=== PATIENT | female | born 1980 | race Hispanic/Latino ===

== ENCOUNTER 2017-12-10 01:39 | Inpatient (IN) | payer MEDICAID, SELFPAY ==
[2017-12-10] MEDS ORDERED: Ketorolac Tromethamine 30 MG/ML VIAL ONE ×2 (02:05→16:03)
[2017-12-10] MEDS ORDERED: Morphine 4 MG/ML VIAL ONE (02:05)
[2017-12-10] MEDS ORDERED: Ondansetron HCl/PF 4 MG/2 ML Vial ONE ×2 (02:05→16:03)
[2017-12-10 02:46] LABS: #Eosinphils 0.1 thou/uL (0.0-0.7); #Lymphocytes 3.4 thou/uL (1.20-3.40); #Monocytes 0.6 thou/uL (0.11-0.59); #Neutrophils 4.7 thou/uL (1.40-6.50); %Basophils 0.4 % (0.0-1.0); %Eosinophils 0.8 % (0.0-10.0); %Lymphocytes 38.4 % (21.0-51.0); %Neutrophils 53.5 % (42.0-75.0); Hemoglobin 12.5 g/dL (12.0-16.0); Mean Corpuscular Hemoglobin 30.3 pg (27.0-31.0); Mean Platelet Volume 7.9 fL (7.4-10.4); Platelet Count 263 thou/uL (130-400); RBC Distribution Width 11.8 % (11.5-14.5); Red Blood Cell (RBC) Count 4.13 mill/uL (4.20-5.40); White Blood Cell (WBC) Count 8.9 thou/uL (4.8-10.8)
[2017-12-10 03:06] LABS: ALT (SGPT) 10 U/L (8-55); AST (SGOT) 16 U/L (5-34); Albumin 4.3 g/dL (3.5-5.0); Alkaline Phosphatase 64 U/L (40-150); Anion Gap 15 mmol/L (10-20); BUN (Urea Nitrogen) 16 mg/dL (7.0-18.7); Bilirubin, Total 0.3 mg/dL (0.2-1.2); Calc. Creatinine Clearance 0 mL/min (70-130); Calcium 9.3 mg/dL (7.8-10.44); Carbon Dioxide 17 mmol/L (22-29); Chloride 107 mmol/L (98-107); Estimated GFR-MDRD 84; Globulin 3.6 g/dL (2.4-3.5); Glucose 113 mg/dL (70-105); Potassium 3.5 mmol/L (3.5-5.1); Protein, Total 7.9 g/dL (6.0-8.3); Sodium 135 mmol/L (136-145)
[2017-12-10 03:14] LABS: Bilirubin Negative (Negative); Blood, Urine Negative (Negative); Clarity CLEAR (Clear); Glucose, Urine (Dipstick) Negative (Negative); Leukocyte Negative (Negative); Nitrite Negative (Negative); Protein, Urine (Dipstick) Negative (Neg-Trace); Urobilinogen 0.2 mg/dL (0.2-1.0); pH, Urine 5.5 (5.0-9.0)
[2017-12-10 03:15] LABS: Pregnancy Test - Urine (BHCG) Negative (Negative); Pregu Control Background? CLEAR/WHITE (CLR/WHITE); Pregu Control Bar Appear? YES (CONTROL BAR)
[2017-12-10 03:17] LABS: Acetaminophen Less than 6.0 mcg/mL (10.0-30.0); Alcohol 135 mg/dL (Less than 10); Salicylate Less than 8.0 mg/dL (15.0-30.0)
[2017-12-10] MEDS ORDERED: Ondansetron HCl/PF 4 MG/2 ML Vial IVP PRN ×2 (03:28→17:46)
[2017-12-10] MEDS ORDERED: Dextrose 50% Abboject 50 ML SYRINGE SLOW IVP PRN (03:28)
[2017-12-10] MEDS ORDERED: Ondansetron ODT 4 MG TAB PO PRN (03:28)
[2017-12-10] MEDS ORDERED: traMADol HCl 50 MG TAB PO PRN (03:28)
[2017-12-10] MEDS ORDERED: Dextrose 5% in Water 1,000 ML IV PRN (03:28)
--- NOTE | 2017-12-10 04:09 | HP ---
DATE OF ADMISSION: 12/10/2017 ATTENDING PHYSICIAN: Dr. Hernandez. TRAUMA ACTIVATION: Not applicable. HISTORY OF PRESENT ILLNESS: This is a 37-year-old female with no past medical history who presented to [facility] status post a fall while dancing at a club. Per patient, she was devendra ferrara, somebody stepped on her foot while she was turning causing her to fall down onto her left side. S he had immediate onset of left lower extremity pain with inability to mobilize. She denies head trau ma or loss of consciousness. She was evaluated in the emergency room and found to have a proximal fe mur fracture. Orthopedic Surgery was notified and Trauma Services was asked to admit. Upon my evalu ation, the patient has a chief complaint of 10/10 left lower extremity pain. The pain is worse with palpation or movement and relieved with rest and pain medication. PAST MEDICAL HISTORY: None. ALLERGIES: None. HOME MEDICATIONS: None. CHRONIC MEDICAL ILLNESSES: The patient denies. PAST SURGICAL HISTORY: The patient denies. SOCIAL HISTORY: Patient is a cook. Endorses occasional/social alcohol use. Denies tobacco or illic it drug use. FAMILY HISTORY: Significant for father with CAD. REVIEW OF SYSTEMS: A 10-point review of systems was performed and was performed and essentially nega tive except as indicated in the HPI. PHYSICAL EXAMINATION: VITAL SIGNS: Temperature 97.9, pulse 85, respirations 18, O2 saturation 98% on room air, blood press ure 135/77. GENERAL: Well-developed female in no acute distress, resting in bed. HEAD: Normocephalic, atraumatic. EYES: Pupils are PERRL. Extraocular movements are intact. NECK: Supple. Trachea is midline. There is no midline tenderness to palpation. CHEST: Atraumatic, nontender to palpation. Normal work of breathing. Symmetric rise. CARDIOVASCULAR: Regular rate and rhythm, no obvious murmurs, rubs or gallops. GASTROINTESTINAL: Abdomen is soft, nontender, nondistended. BACK: Reported as being within normal limits. EXTREMITIES: Bilateral upper extremities within normal limits. Right lower extremity within normal limits. Left lower extremity with tenderness to palpation of the left hip and thigh. Range of motio n is limited secondary to pain. She is neurovascularly intact distal to the side of her injury. NEUROLOGIC: GCS is 15. No focal deficit is noted. LABORATORY DATA: WBC 8.9, hemoglobin 12.5, hematocrit 38.0 and platelet count 263. Sodium 135, pota ssium 3.5, chloride 107, carbon dioxide 17, BUN 16, creatinine 0.77, glucose 113. AST and ALT within normal limits. Urine test was negative. Urinalysis is unremarkable. Blood alcohol was 1 35. EKG with normal sinus rhythm and QT prolongation at 470 milliseconds, QTC prolongation at 470 mi lliseconds. RADIOLOGIC FINDINGS: Chest x-ray was within normal limits. Official read is pending. X-ray of the femur showed a comminuted and displaced proximal femur fracture. Official read is pending. ASSESSMENT: 1. Status post mechanical fall. 2. Left femur fracture. 3. Acute traumatic pain. 4. Prolonged QTC. PLAN: 1. Admit to Trauma Services. 2. Orthopedic Surgery has been notified and plans for operative intervention later today. Periopera tive pain management with p.o. and IV analgesics. The patient should be n.p.o., IV fluid hydration, postoperative PT and OT. DVT and gastritis prophylaxis when appropriate. Plans for admission were d iscussed with the patient and family at bedside. All questions were answered at the time of this dic tation. Trauma attending has been notified of admission.
[2017-12-10] MEDS: Lactated Ringer's 1,000 ML IV SCH ×3 (05:24→21:36)
[2017-12-10] MEDS: Ketorolac Tromethamine 30 MG/ML VIAL IVP SCH ×3 (05:25→18:37)
[2017-12-10] MEDS: Acetaminophen 500 MG TAB PO SCH ×3 (05:25→18:35)
[2017-12-10] MEDS: traMADol HCl 50 MG TAB PO SCH ×3 (05:26→18:35)
[2017-12-10] MEDS: Cyclobenzaprine 10 MG TAB PO PRN (07:26)
--- NOTE | 2017-12-10 08:51 | RAD ---
TWO VIEWS LEFT FEMUR: DATE: 12/10/17. HISTORY: Fell while dancing. FINDINGS: There is a comminuted spiral-type fracture involving the proximal left femoral diaphysis with extensi on into the intratrochanteric region. There is displacement and angulation of fracture fragments. D istal fracture fragment is displaced medially by greater than 1 full shaft width. No additional frac ture is seen and there is no dislocation. IMPRESSION: Comminuted, angulated, , and displaced fractures involving the proximal left femoral diaphys is with extension into the intertrochanteric region. POS: [facility]
[2017-12-10] MEDS: Polyethylene Glycol 3350 17 GM Packet PO SCH (09:00)
[2017-12-10] MEDS: Senokot S 8.6-50 MG TAB PO SCH ×2 (09:00→21:31)
[2017-12-10] MEDS: Famotidine 20 MG TAB PO SCH ×2 (09:00→21:37)
--- NOTE | 2017-12-10 09:03 | RAD ---
PORTABLE AP CHEST XRAY: DATE: 12/10/17. HISTORY: Preoperative evaluation. COMPARISON: None available. FINDINGS: The cardiac silhouette and pulmonary vasculature are within normal limits. Lungs are clear. Osseous structures are intact. IMPRESSION: No acute cardiopulmonary process. POS: [facility]
[2017-12-10] MEDS ORDERED: CEFAZOLIN/Water 2 GM/20 ML SYRINGE ONE (13:18)
[2017-12-10] MEDS ORDERED: Midazolam HCl 2 mg/2 ml Vial ONE (14:16)
[2017-12-10] MEDS ORDERED: Fentanyl 100 MCG/2 ML VIAL ONE ×2 (14:16→17:15)
[2017-12-10] MEDS ORDERED: Lidocaine 1% PF 5 ML VIAL ONE (16:03)
[2017-12-10] MEDS ORDERED: PROPOFOL 200 MG/20 ML VIAL ONE (16:03)
[2017-12-10] MEDS ORDERED: Glycopyrrolate 0.2 MG/ML 5 ML SYRINGE ONE (16:03)
[2017-12-10] MEDS ORDERED: Vecuronium 10 MG VIAL ONE (16:03)
[2017-12-10] MEDS ORDERED: Dexamethasone 20 MG/5 ML VIAL ONE (16:03)
[2017-12-10] MEDS ORDERED: Promethazine HCl 25 MG/ML VIAL IM PRN (17:46)
[2017-12-10] MEDS ORDERED: Promethazine HCl 25 MG/ML VIAL SLOW IVP PRN (17:46)
--- NOTE | 2017-12-10 18:05 | CON ---
DATE OF CONSULTATION: 12/10/2017 HISTORY OF PRESENT ILLNESS: Ms. Echols is a 37-year-old female status post dancing in the club last night at 7:00 on 12/09/2017. The patient was spinning and her foot stepped on. As she twisted, she felt an immediate pop in her left leg and went to the ground. The wound was closed. The patient rates her pain currently as 10/10. She denies numbness or tingling. The patient states that she has had no prior hip pain or pain with ambulation over the last 6 months. The patient localizes the pain to her groin. PAST MEDICAL HISTORY: None. PAST SURGICAL HISTORY: None. ALLERGIES: No known drug allergies. 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 The patient does occasionally uses alcohol. Denies tobacco or drug use. The patient is Kazakh-speaking. Family at the bedside. PHYSICAL EXAMINATION: VITAL SIGNS: Temperature 98.3, pulse 77, respiratory rate 16, sats 98%, blood pressure 97/57. GENERAL: Alert and oriented female resting in bed, in no acute distress. EXTREMITIES: Left lower extremity, the patient has swollen left leg. She is neurovascularly intact distally to the L4-S1 distribution. She can dorsiflex, plantarflex, shaina and invert her foot. She has got 2+ DP and PT pulses. She has got soft compartments. LABORATORY DATA: The patient had an H&H of 12 and 36. She had positive alcohol , no other drugs. Radiographs show a spiral fracture of her left subtrochanteric region extending into her diaphysis of her femur segment with the lesser trochanter off. IMPRESSION: Left subtrochanteric/ femoral shaft fracture. ASSESSMENT AND PLAN: The patient will be taken to the OR today. Once OR time is available, on-call the OR for intramedullary nailing of her left femur with a cephalomedullary nail. I discussed with patient that I would likely potentially have to open up her hip to clamp the fracture across to help with reduction of the fracture and decrease the risk of a malunion. I discussed the risks and benefits of surgery to include pain, scar, bleeding, infection, damage to vital structures, decreased range of motion or strength, nonunion, malunion, loss of life or limb, blood clots. The patient understands these risks and benefits and elects to proceed. The patient will be taken to the operating suite today as soon as available. She received TXA and Ancef 2 grams on-call to the OR. CHRISSY
--- NOTE | 2017-12-10 18:05 | PRG ---
DATE OF SERVICE: 12/10/2017 SUBJECTIVE: This is a 37-year-old female, status post mechanical fall resulting in a left femur frac ture. She is in the preoperative holding area. She has remained hemodynamically stable. Pain has b een well controlled. PHYSICAL EXAMINATION: GENERAL: Upon my evaluation, she vocalized no complaints. Resting in bed in no acute distress. VITAL SIGNS: Temperature 98.3, pulse 77, respirations 16, O2 sat 98% on room air, blood pressure 97/ 57. PULMONARY: Normal work of breathing. Symmetric rise. CARDIOVASCULAR: Regular rate and rhythm. GASTROINTESTINAL: Abdomen is soft, nontender, nondistended. MUSCULOSKELETAL: Left lower extremity in Garcia's traction. She is neurovascularly intact distal to t he side of her injury. NEUROLOGIC: No focal deficit is noted. DIAGNOSTIC STUDIES: No new laboratory findings. No new radiographic findings. ASSESSMENT: 1. Status post mechanical fall. 2. Acute traumatic pain. 3. Left femur fracture. PLAN: Patient to OR with Dr. Mathew later today. Postoperative PT and OT. We will follow up posto peratively and change pain regimen to p.o. analgesics. Continue to avoid QTC prolonging medications. Plan of care discussed with patient. All questions answered at the time of this dictation. Alexia snowden has been discussed with trauma attending.
[2017-12-10] MEDS ORDERED: HYDROcodone/Acetaminophen 5/325 mg Tablet PO PRN ×2 (18:18)
[2017-12-10 19:31] VITALS: BMI 25.8
[2017-12-10] MEDS: CEFAZOLIN 2 GM in Sodium Chloride 0.9% 100 ML IVPB SCH (21:48)
--- NOTE | 2017-12-10 23:30 | RAD ---
LEFT FEMUR TWO VIEWS: HISTORY: Intraoperative film. FINDINGS: A compression screw and intramedullary brenna are in place. These are stabilizing a spiral fracture of the proximal femoral shaft in satisfactory position. A cerclage wire was also used. IMPRESSION: Fixation of proximal femoral shaft fracture. POS: [facility]
[2017-12-11] MEDS: Acetaminophen 500 MG TAB PO SCH ×4 (00:35→17:51)
[2017-12-11] MEDS: Ketorolac Tromethamine 30 MG/ML VIAL IVP SCH ×2 (00:35→05:43)
[2017-12-11] MEDS: traMADol HCl 50 MG TAB PO SCH ×4 (00:35→17:51)
[2017-12-11 04:16] LABS: #Lymphocytes 0.7 thou/uL (1.20-3.40); #Monocytes 0.5 thou/uL (0.11-0.59); #Neutrophils 6.9 thou/uL (1.40-6.50); %Eosinophils 0.2 % (0.0-10.0); %Lymphocytes 8.8 % (21.0-51.0); %Monocytes 6.4 % (0.0-10.0); %Neutrophils 84.7 % (42.0-75.0); Hemoglobin 7.3 g/dL (12.0-16.0); Mean Corpuscular HGB CONC 33.4 g/dL (32.0-36.0); Mean Corpuscular Hemoglobin 31.6 pg (27.0-31.0); Mean Corpuscular Volume 94.6 fL (78.0-98.0); Mean Platelet Volume 7.9 fL (7.4-10.4); Platelet Count 161 thou/uL (130-400); RBC Distribution Width 11.7 % (11.5-14.5); White Blood Cell (WBC) Count 8.1 thou/uL (4.8-10.8)
[2017-12-11 04:39] LABS: Anion Gap 9 mmol/L (10-20); BUN (Urea Nitrogen) 7 mg/dL (7.0-18.7); Calc. Creatinine Clearance 132 mL/min (70-130); Calcium 7.9 mg/dL (7.8-10.44); Carbon Dioxide 24 mmol/L (22-29); Chloride 108 mmol/L (98-107); Estimated GFR-MDRD Greater than 90; Glucose 157 mg/dL (70-105); Magnesium 1.7 mg/dL (1.6-2.6); Phosphorus 2.8 mg/dL (2.3-4.7); Potassium 4.6 mmol/L (3.5-5.1); Sodium 136 mmol/L (136-145)
[2017-12-11] MEDS: CEFAZOLIN 2 GM in Sodium Chloride 0.9% 100 ML IVPB SCH (05:44)
[2017-12-11] MEDS: Lactated Ringer's 1,000 ML IV SCH ×2 (07:41→08:19)
[2017-12-11] MEDS: Polyethylene Glycol 3350 17 GM Packet PO SCH (08:19)
[2017-12-11] MEDS: Famotidine 20 MG TAB PO SCH ×2 (08:20→21:33)
[2017-12-11] MEDS: Enoxaparin Sodium 40 MG/0.4 ML SYRINGE SC SCH (08:20)
[2017-12-11] MEDS: Senokot S 8.6-50 MG TAB PO SCH ×2 (08:20→21:31)
[2017-12-11] MEDS: Ibuprofen 800 MG TAB PO SCH ×2 (10:53→18:42)
[2017-12-11] MEDS: Ascorbic Acid 500 mg Chewable Tablet PO SCH ×2 (10:53→21:33)
--- NOTE | 2017-12-11 11:23 | OP ---
DATE OF PROCEDURE: 12/10/2017 PREOPERATIVE DIAGNOSES: Left subtrochanteric femur fracture with extension in the femoral shaft. POSTOPERATIVE DIAGNOSES: Left subtrochanteric femur fracture with extension in the femoral shaft. PROCEDURES PERFORMED: 1. Open reduction and internal fixation of subtrochanteric femoral shaft fracture with cerclage wires. 2. Intramedullary and extramedullary nail, left femoral shaft, subtrochanteric femur fracture. STAFF: Alexander Mathew M.D. LIVING MANAGER: Leonidas Valentine PA-C. ANESTHESIA: Dr. Covarrubias and Dr. Dill. The patient received general intubation. ESTIMATED BLOOD LOSS: 400 mL. TOURNIQUET TIME: None. IMPLANTS: Synthes 9 x 130 degree x 380 mm with an 85 mm TFNA compression screw , one 5-0 locking screw, 1 was in and out, and three 1.7 cable with crimps. ANTIBIOTICS: Ancef 2 grams. COMPLICATIONS: None. HISTORY OF PRESENT ILLNESS: Ms. Echols is a 37-year-old female, who sustained this fracture, twisting at a dance spaulding, someone spontaneously stepped on her foot. She continued pivoting as she rotated and she had a spiral fracture of femur. I discussed with the patient that given the position of the fracture, I did not feel that closed reduction would be as optimal as open reduction of the fracture to help with reduction of the fracture fragments. I discussed the complexity of the fracture, open it laterally and then place the nail and hold it in position. She understood the risks and benefits of the procedure to include pain, scar, bleeding, infection, damage to vital structures, decreased range of motion, strength, nonunion, malunion, infection, blood clot, continued pain, or loss of life or limb. The patient understood the risks and benefits and elected to proceed. PROCEDURE IN DETAIL: Timeout was performed designating the left lower extremity as the operative site, based on site, consents, marking. After completion of timeout, the patient's left lower extremity was prepped and draped in sterile fashion. I pulled the patient in traction and placed the right leg in the [place] stirrup. We placed our incision down through the skin down the IT band. We elevated the vastus lateralis anteriorly off the septum of the posterior fascia of the IT band. We exposed the distal fracture and we moved proximally and distally and an incision that was approximately 15 cm long. We exposed all three fragments as well to help with the reduction. We placed three cerclage wires around to help with the reduction, and looked on AP and lateral radiographs, we had a good reduction. We got the cerclage wires in place. We then moved proximally, made our oblique incision, came down onto the IT band, split it and came down on the abductor, split, came down and placed our guidepin under fluoroscopic guidance, we had to reposition it about 3 times to get in the position we liked. We then passed our guidepin down the trochanters. I liked the position on AP and lateral radiographs. We then reamed with the opening reamer. We then sequentially passed a 5, up to a 10.5 reamer. We had good cortical fit isthmus. We had good reduction with our cerclage wiring. We did not expand or decompress the wiring. We then passed our 9-mm nail. We ensured that we had good position within the center-center head position. When we passed our guidepin and being happy with this, we drilled and tapped 85 mm screw compression screw. We then placed our 5 mm screw , locked gate down and came off 1-1/2 turn. We then ensured that we reduced it on AP and lateral radiographs. We then completed our crimps and cut our wires for three cerclage. We then moved distally, placed a screw and the compression screw to allow for some compression through the fracture site and we placed a # 5 screw was just 2 mm short and we could not purchase the screw, so we placed a 44 mm screw in. We washed and closed with a #2 Vicryl, and we utilized #2-0 Quill, 0 Quill subcu and then wyatt for the long lateral trochanteric incision. We then closed with 0, 2-0 and wyatt for the insertion of the trochanter and then we closed the distal incision with 2-0 and wyatt. The patient will be touchdown weightbearing. The patient will be followed by Trauma in-house. The patient's outlook is overall good. CHRISSY
--- NOTE | 2017-12-11 12:02 | PRG-2 ---
DATE OF SERVICE: 12/11/2017 SUBJECTIVE: This is a 37-year-old female status post mechanical fall resulting in a left subtrochanteric femoral shaft fracture. The patient had an approximate 5-point drop in her hemoglobin overnight. However, vital signs have remained stable. Pain has been well controlled. The patient has no complaints this morning on exam. OBJECTIVE: GENERAL: The patient vocalize no complaints on exam, she was resting in bed in no acute distress. VITAL SIGNS: Temperature 97.5 degrees Fahrenheit, pulse 77, respirations 16, O2 sat 100% on room air, blood pressure 105/64. PULMONARY: Normal work of breathing. Symmetric rise. CARDIOVASCULAR: Regular rate and rhythm with no murmurs. GASTROINTESTINAL: Abdomen is soft, nontender, nondistended. MUSCULOSKELETAL: The patient is neurovascularly intact distal to site of her injury and in all other extremities. Normal movement in bilateral feet. NEUROLOGIC: No focal deficits noted. LABORATORY DATA: Hemoglobin 7.3, hematocrit 21.7, chloride 108, glucose 157. RADIOGRAPHIC FINDING: No new radiographic findings to review. ASSESSMENT: 1. Status post mechanical fall. 2. Acute traumatic pain. 3. Left femur fracture. 4. Anemia secondary to acute blood loss. PLAN: We will continue postoperative PT and OT as well as p.o. analgesics as needed. We will start PO ferrous sulfate and vitamin C due to significant drop in hemoglobin overnight. We will continue to monitor. We will initiate deep venous thrombosis prophylaxis today and the patient is postoperative day #1. We will discontinue IV fluids if the patient is tolerating p.o. and discontinue Ramirez catheter as well. We will continue scheduled bowel regimen and encourage ambulation today. The patient has been discussed with and evaluated by Trauma attending. CHRISSY
[2017-12-11] MEDS: Ferrous Sulfate 325 MG TAB PO SCH (17:51)
[2017-12-12] MEDS: Ibuprofen 800 MG TAB PO SCH ×3 (00:21→18:22)
[2017-12-12] MEDS: Acetaminophen 500 MG TAB PO SCH ×4 (00:22→18:22)
[2017-12-12] MEDS: traMADol HCl 50 MG TAB PO SCH ×4 (00:22→18:21)
[2017-12-12 05:58] LABS: #Lymphocytes 1.7 thou/uL (1.20-3.40); #Monocytes 0.5 thou/uL (0.11-0.59); #Neutrophils 2.9 thou/uL (1.40-6.50); %Basophils 0.7 % (0.0-1.0); %Eosinophils 0.3 % (0.0-10.0); %Lymphocytes 33.3 % (21.0-51.0); %Monocytes 9.1 % (0.0-10.0); %Neutrophils 56.6 % (42.0-75.0); Hemoglobin 5.7 g/dL (12.0-16.0); Mean Corpuscular Hemoglobin 31.5 pg (27.0-31.0); Mean Corpuscular Volume 95.5 fL (78.0-98.0); Mean Platelet Volume 8.2 fL (7.4-10.4); Platelet Count 149 thou/uL (130-400); RBC Distribution Width 12.1 % (11.5-14.5); Red Blood Cell (RBC) Count 1.81 mill/uL (4.20-5.40); White Blood Cell (WBC) Count 5.2 thou/uL (4.8-10.8)
[2017-12-12 06:11] LABS: Anion Gap 8 mmol/L (10-20); BUN (Urea Nitrogen) 6 mg/dL (7.0-18.7); Calc. Creatinine Clearance 137 mL/min (70-130); Calcium 7.5 mg/dL (7.8-10.44); Carbon Dioxide 25 mmol/L (22-29); Chloride 108 mmol/L (98-107); Estimated GFR-MDRD Greater than 90; Glucose 93 mg/dL (70-105); Magnesium 1.9 mg/dL (1.6-2.6); Phosphorus 1.7 mg/dL (2.3-4.7); Potassium 3.7 mmol/L (3.5-5.1); Sodium 137 mmol/L (136-145)
[2017-12-12] MEDS ORDERED: Potassium Phosphate 30 MMOL in Sodium Chloride 0.9% 500 ML IVPB SCH (07:00)
[2017-12-12] MEDS ORDERED: Magnesium 2 GM/NS 0.9% 100 ML 2 GM in Premix Bag 1 BAG IVPB SCH (07:00)
[2017-12-12] MEDS: Potassium Phosphate 15 MMOL in Sodium Chloride 0.9% 250 ML 250 ML IVPB SCH ×2 (07:48→12:16)
[2017-12-12] MEDS: Ferrous Sulfate 325 MG TAB PO SCH ×2 (09:18→18:22)
[2017-12-12] MEDS: Famotidine 20 MG TAB PO SCH ×2 (09:18→21:24)
[2017-12-12] MEDS: Senokot S 8.6-50 MG TAB PO SCH ×2 (09:18→21:24)
[2017-12-12] MEDS: Enoxaparin Sodium 40 MG/0.4 ML SYRINGE SC SCH (09:18)
[2017-12-12] MEDS: Ascorbic Acid 500 mg Chewable Tablet PO SCH ×2 (09:18→21:25)
[2017-12-12] MEDS: Polyethylene Glycol 3350 17 GM Packet PO SCH (09:19)
--- NOTE | 2017-12-12 11:21 | PRG-2 ---
DATE OF SERVICE: 12/12/2017 HISTORY OF PRESENT ILLNESS: This is a 37-year-old female status post mechanical fall resulting in a left subtrochanteric femoral shaft fracture. The patient had a significant drop in her hemoglobin down to a level of 5.7, requiring transfusion of 2 units of PRBCs this AM. However, her vital signs have remained stable and her pain has been well controlled. Has been passing gas but no BM yet. Endorses some nausea but has been able to keep food and liquids down. The patient has no complaints this morning on exam and states she feels much better. PHYSICAL EXAMINATION: GENERAL: The patient states she feels much better on exam this morning. She was resting in bed in no acute distress. VITAL SIGNS: Temperature 98.1 degrees Fahrenheit, pulse 93, respirations 16, O2 sat 98% on room air, blood pressure 116/69. PULMONARY: Normal work of breathing. Symmetric rise. LUNGS: Clear to auscultation bilaterally. CARDIOVASCULAR: Regular rate and rhythm with no murmurs. GASTROINTESTINAL: Abdomen is soft, nontender, nondistended. MUSCULOSKELETAL: The patient is neurovascularly intact distal to side for injury in all other extremities. Normal movement in bilateral feet. NEUROLOGIC: No focal deficits noted. LABORATORY DATA: White blood count 5.2, hemoglobin 5.7, hematocrit 17.2, platelet count 149. Sodium 137, potassium 3.7, chloride 108, bicarb 25, BUN 6, creatinine 0.64, blood glucose 93. Magnesium 1.9, phosphorus 1.7. RADIOGRAPHIC FINDINGS: No known radiographic findings reviewed. ASSESSMENT AND PLAN: 1. Status post mechanical fall. 2. Acute traumatic pain. 3. Left femur fracture, postoperative day #2 status post repair. 4. Anemia secondary to acute blood loss. 5. Hypophosphatemia. PLAN: We will continue postoperative PT and OT as well as p.o. analgesics as needed. Will also continue on p.o. ferrous sulfate and vitamin C b.i.d. In addition, the patient will receive 2 units of packed RBCs due to Hgb of 5.7 this AM. We will continue DVT prophylaxis with IV Lovenox as patient is not yet very mobile as she is postoperative day #2. However, will continue to monitor vitals and hemoglobin levels closely while on this medication. We will continue with p.o. hydration and a scheduled bowel regimen to induce a bowel movement. We will encourage ambulation today. Will replace phosphorus with potassium phosphate 15 millimoles and sodium chloride. Will give 2 grams of magnesium sulfate IV as well. The patient has been discussed with and evaluated by trauma attending. CHRISSY
[2017-12-12] MEDS: Cyclobenzaprine 10 MG TAB PO PRN (21:30)
[2017-12-13] MEDS: Acetaminophen 500 MG TAB PO SCH ×3 (00:46→12:19)
[2017-12-13] MEDS: Ibuprofen 800 MG TAB PO SCH ×2 (00:46→09:02)
[2017-12-13] MEDS: traMADol HCl 50 MG TAB PO SCH ×3 (00:47→12:18)
[2017-12-13 05:05] LABS: #Lymphocytes 1.6 thou/uL (1.20-3.40); #Monocytes 0.4 thou/uL (0.11-0.59); #Neutrophils 3.1 thou/uL (1.40-6.50); %Basophils 0.7 % (0.0-1.0); %Eosinophils 0.5 % (0.0-10.0); %Lymphocytes 31.4 % (21.0-51.0); %Monocytes 6.9 % (0.0-10.0); %Neutrophils 60.5 % (42.0-75.0); Mean Corpuscular HGB CONC 33.1 g/dL (32.0-36.0); Mean Corpuscular Hemoglobin 29.9 pg (27.0-31.0); Mean Corpuscular Volume 90.4 fL (78.0-98.0); Mean Platelet Volume 8.4 fL (7.4-10.4); Platelet Count 159 thou/uL (130-400); RBC Distribution Width 15.3 % (11.5-14.5); Red Blood Cell (RBC) Count 2.66 mill/uL (4.20-5.40); White Blood Cell (WBC) Count 5.2 thou/uL (4.8-10.8)
[2017-12-13 05:27] LABS: Anion Gap 8 mmol/L (10-20); BUN (Urea Nitrogen) 5 mg/dL (7.0-18.7); Calc. Creatinine Clearance 156 mL/min (70-130); Calcium 7.6 mg/dL (7.8-10.44); Carbon Dioxide 24 mmol/L (22-29); Chloride 108 mmol/L (98-107); Estimated GFR-MDRD Greater than 90; Glucose 88 mg/dL (70-105); Magnesium 2.2 mg/dL (1.6-2.6); Phosphorus 2.3 mg/dL (2.3-4.7); Potassium 4.1 mmol/L (3.5-5.1); Sodium 136 mmol/L (136-145)
[2017-12-13 08:27] VITALS: TEMP 98.2
[2017-12-13] MEDS ORDERED: Magnesium Citrate 300 ML BOT PO SCH (09:00)
[2017-12-13] MEDS: Ascorbic Acid 500 mg Chewable Tablet PO SCH (09:01)
[2017-12-13] MEDS: Famotidine 20 MG TAB PO SCH (09:01)
[2017-12-13] MEDS: Senokot S 8.6-50 MG TAB PO SCH (09:01)
[2017-12-13] MEDS: Enoxaparin Sodium 40 MG/0.4 ML SYRINGE SC SCH (09:01)
[2017-12-13] MEDS: Ferrous Sulfate 325 MG TAB PO SCH (09:02)
[2017-12-13] MEDS: Polyethylene Glycol 3350 17 GM Packet PO SCH (09:02)
--- NOTE | 2017-12-13 10:45 | PRG ---
DATE OF SERVICE: 12/13/2017 SUBJECTIVE: This is a 37-year-old female postop day #3 status post open reduction internal fixation of subtrochanteric femoral shaft fracture. There were no acute overnight events. The patient was tr ansfused 2 units PRBC yesterday. Hemoglobin this morning is improved. The patient states her pain h as been well controlled. She has not yet had a bowel movement, but she is working with licensed physical therapist assistant apy. OBJECTIVE: VITAL SIGNS: Temperature 98.2, pulse 80, respiration 12-16, O2 sat 98% on room air, blood pressure 1 09/66. GENERAL: Well-developed young female in no acute distress, resting in bed. PULMONARY: Normal work of breathing. Symmetric rise. CARDIOVASCULAR: Regular rate and rhythm. GASTROINTESTINAL: Abdomen is soft, nontender, nondistended. MUSCULOSKELETAL: Moves all extremities x4. NEUROLOGIC: No focal deficit is noted. LABORATORY DATA: WBC 5.2, hemoglobin 8.0, hematocrit 24.1, platelet count 159. Sodium 136, potassiu m 3.1, chloride 108, carbon dioxide 24, BUN 5, creatinine 0.56, glucose 88. ASSESSMENT: 1. Status post mechanical fall. 2. Left subtrochanteric femur fracture. 3. Acute traumatic pain. PLAN: Continue pain management as ordered. Continue PT and OT. Increase bowel regimen. Once the p atient has bowel movement she may be discharged as soon as this afternoon. Plan of care was discusse d with the patient at bedside and all questions were answered at the time of this dictation. The patient was discussed with trauma attending.
[2017-12-13 11:53] VITALS: BP 118/72
== END 2017-12-13 14:43 | disposition home or self-care (01) | DRG 481 ==
LOC: ERS 01:39 → SURG A 04:36
PROVIDERS: ADMIT Surgery; ATTEND Surgery
PROC: 0QS904Z Reposition Left Femoral Shaft with Internal Fixation Device, Open Approach (ICD-10-PCS; principal; 2017-12-10)
PROC: 30233N1 Transfusion of Nonautologous Red Blood Cells into Peripheral Vein, Percutaneous Approach (ICD-10-PCS; 2017-12-12)
DX: S72.22XA Displaced subtrochanteric fracture of left femur, initial encounter for closed fracture (principal); D62 Acute posthemorrhagic anemia; W01.0XXA Fall on same level from slipping, tripping and stumbling without subsequent striking against object, initial encounter; Y93.41 Activity, dancing; Y92.9 Unspecified place or not applicable; Y99.9 Unspecified external cause status; E83.39 Other disorders of phosphorus metabolism
CPT/HCPCS: 36415; 36430; 51702; 71045; 76001; 80048; 80053; 80307; 81003; 81025; 83735; 84100; 85025; 86850; 86900; 86901; 93005; 96361; 96374; 96375; C1713; C1769; G8978-GP-CK; G8979-GP-CI; G8987-GO-CI; G8988-GO-CH; J0690; J1100; J1650; J1885; J2001; J2250; J2270; J2405; J2704; J3010; J3475; J7050; P9016